=== PATIENT | female | born 1945 | race Two or more races ===

== ENCOUNTER 2024-09-28 16:54 | Emergency (ER) | payer MEDICARE ==
[~2024-09-28] VITALS: Ht 157.5 cm; Wt 69.5 kg
[2024-09-28 17:06] VITALS: BP 115/57; PULSE 63; RESP 18; TEMP 97.6; O2SAT 98
[2024-09-28] MEDS ORDERED: MIDO5TAB5 PO (17:08)
[2024-09-28] MEDS ORDERED: SERT-438 PO (17:08)
[2024-09-28] MEDS ORDERED: METO-408 PO (17:08)
[2024-09-28] MEDS ORDERED: SACU1TAB PO (17:08)
[2024-09-28] MEDS ORDERED: LEVO175T9 PO (17:08)
[2024-09-28] MEDS ORDERED: DAPA10TA PO (17:08)
[2024-09-28] MEDS ORDERED: POTA-203 PO (17:08)
[2024-09-28] MEDS ORDERED: BUME0.5T5 PO (17:08)
[2024-09-28] MEDS ORDERED: ACET-66 PO (18:18)
[2024-09-28] MEDS ORDERED: SULF15DR26 OD (18:18)
[2024-09-28] MEDS ORDERED: CEPH-558 PO (18:18)
== END 2024-09-28 18:38 | disposition home or self-care (01) ==
LOC: EMS 16:54
DX: L03.211 Cellulitis of face (principal); L02.02 Furuncle of face; I11.0 Hypertensive heart disease with heart failure; E03.9 Hypothyroidism, unspecified; I50.9 Heart failure, unspecified; Z79.84 Long term (current) use of oral hypoglycemic drugs; Z79.890 Hormone replacement therapy; Z88.5 Allergy status to narcotic agent; Z98.890 Other specified postprocedural states
CPT/HCPCS: 99283; Z7502